=== PATIENT | female | born 1985 | race Caucasian/White ===

== ENCOUNTER 2018-11-18 11:37 | Emergency (ER) | payer MEDICAID, OTHER, SELFPAY ==
[~2018-11-18] VITALS: Ht 157.5 cm; Wt 62.0 kg
--- NOTE | 2018-11-18 11:54 | NUR ---
patient arrives with abdominal pain that began in august. she has had 12 doctor visits and a lot of pasternick her primary. she has been diagnosed with a lipoma on left upper quadrant and saw a surgeon who said removal is not necessary although she says its painful. in last year she has lost 72 lbs. she is currently eating just small meals and it causes pain. she has constant nausea. she has diarrea off and on but not currently.
--- NOTE | 2018-11-18 12:26 | NUR ---
urine sent to lab. clear light yellow. bloodwork obtained, iv in place, on monitor.
[2018-11-18] MEDS ORDERED: SODIUM CHLORIDE FLUSH 10ML SYR IVF ONE (12:30)
[2018-11-18 12:42] LABS: ALANINE AMINOTRANSFERASE 25 U/L (12-78); ALBUMIN 4.2 g/dL (3.4-5.0); ANION GAP 4 mmol/L (5-15); CHLORIDE 109 mmol/L (98-107)
[2018-11-18 12:43] LABS: BASOPHILS # (AUTO) 0.02 x10^3/uL (0-0.1); BASOPHILS % (AUTO) 0 % (0-1); EOSINOPHILS # (AUTO) 0.03 x10^3/uL (0-0.4); EOSINOPHILS % (AUTO) 1 % (1-7); LYMPHOCYTES # (AUTO) 2.09 x10^3/uL (1-3.4); LYMPHOCYTES % (AUTO) 38 % (22-44); MD NO; MEAN CORPUSCULAR HEMOGLOBIN 30.9 pg (27.0-34.8); MEAN CORPUSCULAR HGB CONC 33.3 g/dL (32.4-35.8); MEAN CORPUSCULAR VOLUME 92.9 fL (80-100); MEAN PLATELET VOLUME 7.6 fL (7.4-10.4); MONOCYTES # (AUTO) 0.36 x10^3/uL (0.2-0.8); MONOCYTES % (AUTO) 7 % (2-9); NEUTROPHILS # (AUTO) 3.06 x10^3/uL (1.8-6.8); NEUTROPHILS % (AUTO) 55 % (42-75); PLATELET COUNT 290 x10^3/uL (130-400); RED BLOOD COUNT 4.68 x10^6/uL (3.82-5.3); RED CELL DISTRIBUTION WIDTH 13.5 % (9.6-15.2)
[2018-11-18 12:44] LABS: ALKALINE PHOSPHATASE 83 U/L (45-117); BILIRUBIN,TOTAL 0.5 mg/dL (0.2-1.0); TOTAL PROTEIN 7.8 g/dL (6.4-8.2)
[2018-11-18 12:46] LABS: HCG UR SG 1.009 (1.003-1.030)
[2018-11-18 12:47] LABS: CULTURE INDICATED? YES
--- NOTE | 2018-11-18 12:56 | NUR ---
patient in bed, rails up. awaiting er workup. blood and urine in lab. vss.
[2018-11-18] MEDS ORDERED: OMNIPAQUE 350 MG/ML, 100ML BOTTLE ONE (13:21)
[2018-11-18 13:52] VITALS: BP 132/78
--- NOTE | 2018-11-18 13:52 | NUR ---
patient discharge teaching reviewed, left with . shows understanding.
[2018-11-18 13:58] LABS: MICROSCOPIC AUTO
== END 2018-11-18 14:03 | disposition home or self-care (01) ==
LOC: ED 13:57
DX: R10.12 Left upper quadrant pain (principal); N20.0 Calculus of kidney
CPT/HCPCS: 36415; 74177; 80053; 81001; 81025; 83690; 85025; 87086; 99284; Q9967